=== PATIENT | male | born 1995 | race Caucasian/White ===

== ENCOUNTER 2019-06-25 02:42 | Emergency (ER) | payer OTHER ==
[~2019-06-25] VITALS: Ht 172.7 cm; Wt 70.3 kg
[~2019-06-25 02:42] MED LIST: ULTRAM 50MG TAB50 MG PO
[2019-06-25] MEDS ORDERED: ACCUNEB SO1.25 MG/1 (02:48)
[2019-06-25] MEDS ORDERED: MOBIC15 MG PO (03:04)
[2019-06-25 03:25] VITALS: BP 123/83
== END 2019-06-25 03:29 | disposition home or self-care (01) ==
LOC: ER 02:42
DX: H92.01 Otalgia, right ear (principal); F90.9 Attention-deficit hyperactivity disorder, unspecified type